=== PATIENT | male | born 1965 | race Caucasian/White ===

== ENCOUNTER 2019-12-25 03:36 | Observation (INO) ==
[2019-12-25 04:27] LABS: Basophils # 0.1 K/mcL (0.0-0.2); Basophils % 0.5 %; Eosinophils # 0.2 K/mcL (0.0-0.6); Eosinophils % 1.6 %; Hematocrit 41.9 % (37.5-50.1); Hemoglobin 14.4 g/dL (12.9-16.9); Immature Granulocytes % 0.3 % (0-4); Lymphocytes # 2.4 K/mcL (0.6-4.6); Lymphocytes % 24.7 %; Mean Corpuscular HGB Conc 34.4 g/dL (31.6-35.5); Mean Corpuscular Hemoglobin 31.7 pg (28.0-33.3); Mean Corpuscular Volume 92.3 fL (83.0-100.0); Mean Platelet Volume 9.3 fL (9.4-12.4); Monocytes # 0.6 K/mcL (0.0-1.3); Monocytes % 6.1 %; Neutrophils # 6.4 K/mcL (1.6-8.9); Platelet Count 269 K/mcL (140-400); Red Blood Count 4.54 M/mcL (4.19-5.50); Red Cell Distribution Width 14.6 % (11.5-14.5); Segmented Neutrophils % 66.8 %; White Blood Count 9.5 K/mcL (4.3-11.1)
[2019-12-25 04:32] LABS: INR 1.1; Prothrombin Time 12.6 Seconds (9.4-12.1)
[2019-12-25 04:36] LABS: Activated Partial Thrombo Time 34.7 Seconds (26.0-36.0)
[2019-12-25 04:43] LABS: Troponin I < 0.03 ng/mL (< 0.04)
[2019-12-25 04:44] LABS: BUN/Creatinine Ratio 7 (6-26); Blood Urea Nitrogen 9 mg/dL (6-20); Calcium 9.2 mg/dL (8.6-10.3); Carbon Dioxide 29 mEq/L (23-29); Chloride 100 mEq/L (98-107); Ethanol < 10 mg/dL (Less than 10); Glucose 143 mg/dL (70-105); Osmolality,Calculated 279 (280-300); Sodium 134 mEq/L (136-145); eGFR For African Americans > 60 (> 60); eGFR For Non-African Americans 56 (> 60)
[2019-12-25] MEDS ORDERED: 0.9 % Sodium Chloride 500 ML IVC ONE (04:50)
[2019-12-25 05:15] LABS: Bilirubin,Urine Negative (Negative); Blood,Urine Moderate (Negative); Clarity,Urine Slightly Cloudy (Clear); Glucose,Urine (UA) Normal (Normal); Ketones,Urine Negative (Negative); Leukocyte Esterase,Urine Negative (Negative); Nitrite,Urine Negative (Negative); Protein,Urine >=300 mg/dL (Neg-Trace); Specific Gravity,Urine 1.025 (1.010-1.025); Urobilinogen,Urine Normal (Normal)
[2019-12-25 05:24] LABS: Color,Urine Dark-Yellow (Yellow)
[2019-12-25 05:25] LABS: Amorphous Sediment,Urine Few per hpf (Few)
[2019-12-25 05:26] LABS: Amphetamine Screen,Urine Negative ng/mL (Cutoff=1000); Barbiturate Screen,Urine Negative ng/mL (Cutoff=200); Benzodiazepines Screen,Urine Negative ng/mL (Cutoff=200); Cannabinoid Screen,Urine Positive ng/mL (Cutoff = 50); Cocaine Screen,Urine Negative ng/mL (Cutoff= 300); Opiate Screen,Urine Negative ng/mL (Cutoff=300); Phencyclidine Screen,Urine Negative ng/mL (Cutoff=25)
[2019-12-25] MEDS ORDERED: Nicotine 21 MG PATCH.TD24 TD ONE (06:01)
[2019-12-25] MEDS ORDERED: Naloxone 0.4 MG/ML INJ IVP PRN ×2 (06:02→06:34)
[2019-12-25] MEDS ORDERED: 0.9 % Sodium Chloride 1,000 ML IVC SCH (06:15)
[2019-12-25] MEDS: 0.9 % Sodium Chloride 1,000 ML IVC SCH ×2 (08:25→16:42)
[2019-12-25] MEDS: cloNIDine HCl 0.1 MG TABLET PO SCH ×3 (08:25→20:21)
[2019-12-25] MEDS ORDERED: Lisinopril-HCTZ 20-12.5mg TABLET PO SCH (09:00)
[2019-12-25] MEDS ORDERED: Nicotine 21 MG PATCH.TD24 TD SCH (09:00)
[2019-12-25] MEDS: Lisinopril-HCTZ 20-12.5mg TABLET PO SCH (20:21)
[2019-12-26] MEDS: cloNIDine HCl 0.1 MG TABLET PO SCH ×2 (04:56→15:37)
[2019-12-26] MEDS: Lisinopril-HCTZ 20-12.5mg TABLET PO SCH (04:56)
[2019-12-26] MEDS ORDERED: amLODIPine 5 MG TABLET PO STA (08:53)
[2019-12-26] MEDS ORDERED: Nicotine 21 MG PATCH.TD24 TD SCH (09:00)
[2019-12-26] MEDS ORDERED: amLODIPine 5 MG TABLET PO SCH ×2 (09:00)
[2019-12-26] MEDS ORDERED: cloNIDine HCl 0.1 MG TABLET PO ONE (13:18)
[2019-12-26 16:17] VITALS: BP 157/101
[2019-12-27] MEDS ORDERED: amLODIPine 5 MG TABLET PO SCH (09:00)
== END 2019-12-26 17:07 | disposition home or self-care (01) ==
LOC: INPGRE 03:36 → EMEROOGRE 03:36 → INPGRE 06:24
PROVIDERS: ADMIT Internal Medicine; ATTEND Internal Medicine